=== PATIENT | female | born 1965 | race Two or more races ===

== ENCOUNTER → 2024-11-04 | Outpatient (CLI) | payer MEDICAID, SELFPAY ==
--- NOTE | 2024-11-04 10:00 | XR_ITS ---
Exam: MRI knee without contrast, left Date and time of exam: November 04, 2024 1021 hrs. Indications: Sudden onset knee pain joint locking stiffness this week Technique: Multiple axial, coronal, and sagittal sections on the knee have been obtained. T2-Weighted sagittal, fat-suppressed images, TR 3,500, TE 62, T2 weighted coronal fat-saturated images, TR 3,500, TE 62 Proton density sagittal sections, TR 1800, TE 31. T-1 weighted coronal images, TR 524, TE 13.0 Findings: Medial meniscus anterior horn intact. Medial meniscus, body is intact. Posterior horn medial meniscus intact. Lateral meniscus anterior horn is intact Lateral meniscus, body is intact Posterior horn lateral meniscus is intact Anterior cruciate ligament high-grade sprain Posterior cruciate ligament appears intact. Knee effusion is small. Quadriceps and patellar tendons appear intact. There is no evidence of tendinosis. Inflammatory change or fracture of Hoffa's fat pad is not seen. Medial patellar facet demonstrates severe thinning. Lateral patellar facet cartilage demonstrates severe thinning. Trochlear cartilage demonstrates severe thinning. 10 mm full-thickness cartilaginous defect at the median eminence Marrow signal adequate. Medial collateral ligament appears intact. No meniscocapsular separation is seen. Illiotibial band and fibular collateral ligament are intact. Biceps femoris tendons appear intact. Medial femoral condylar articular cartilage demonstrates moderate thinning. Lateral femoral condylar articular cartilage demonstratesmoderate thinning. Tibial plateau cartilage demonstrates moderate thinning. Impression: High-grade sprain anterior cruciate ligament Significant thickening cartilage patellar facets with 10 mm full-thickness cartilaginous defect at the median eminence of the patella
== END | disposition home or self-care (01) ==
PROVIDERS: PCP Registered Nurse Community Health; Referring Provider Orthopaedic Surgery; Visit Provider Orthopaedic Surgery
DX: S83.512A Sprain of anterior cruciate ligament of left knee, initial encounter (principal); X58.XXXA Exposure to other specified factors, initial encounter; M25.862 Other specified joint disorders, left knee
CPT/HCPCS: 73721

== ENCOUNTER 2025-02-05 14:00 | Outpatient (RCR) | payer MEDICAID, SELFPAY ==
--- NOTE | 2025-01-27 14:09 | PT.OIERPT ---
PT OP Initial Eval Patient Information Outpatient Physical Therapy Treatment Date: 01/27/25 Visit Reasons: Left knee pain Medical Diagnosis: M23.92 Treatment Dx #1: L knee pain Start of Care: 01/27/25 Date of Onset: 6 months ago Smoking Status Smoking Status: Never smoker Initial Assessment Subjective: Pt is 59 yr old kiswahili speaking female who reports L knee pain x6 months along with weakness. She feels the lower calf is numb. She can do HH chores and walk but feels like she is dragging the L LE. PMH: HTN, Parkinson's, Imaging: MRI of L knee Significant thickening cartilage patellar facets with 10 mm full-thickness cartilaginous defect at the median eminence of the patella Pt goal: less knee pain Objective: L knee AROM: Extension: -5 deg Flexion: 114 deg SLR: 45 deg Strength: Quads: 3+/5 HS: 3+/5 Katie's: negative Patella compression: negative Assessment: Pt presents with decreased L knee strength and pain with full extension. Pt requires skilled therapy to meet goals and she has fair rehab potential. Short Term and Electric Cell Tender Goals 1. Ind with HEP 2. Improved L knee extension ROM to full 3. Improved strength to 4/5 quads and HS 4. Ambulate with symmetrical pattern and no dragging the L LE x 200' Treatment Plan ? 1. Manual therapy ? 2. Therex ? 3. Modalities as indicated, moist heat, ice, estim Frequency and Duration: 2x a week for 8 Rx sessions plus the evaluation Certification Dates: 01/27/25 to 04/27/25 Procedure Charges OP PT Eval Mod Complex 30 minutes: Yes
--- NOTE | 2025-02-05 14:37 | PT.ODAYNRPT ---
PT Outpatient Daily Note OP Daily Note Outpatient Physical Therapy Treatment Date: 02/05/25 Visit Reasons: Left knee pain Subjective: Pt c/o L knee numbing/tingling. Objective: Please see flow sheet for ther ex list. Assessment: Pt performs SLR with knee extension lag likely due to poor quad recruitment. Plan: Continue with pOC. Length of Time (minutes) of Treatment: 30 Minutes Procedure Charges Therapeutic Exercise 30 minutes: Yes
== END 2025-02-06 23:59 | disposition home or self-care (01) ==
LOC: CPTX 14:00
PROVIDERS: PCP Orthopaedic Surgery; Referring Provider Orthopaedic Surgery; Visit Provider Orthopaedic Surgery
DX: M25.562 Pain in left knee (principal); R53.1 Weakness; M23.92 Unspecified internal derangement of left knee; I10 Essential (primary) hypertension
CPT/HCPCS: 97110; 97162

== ENCOUNTER 2025-02-12 10:00 | Day surgery (SDC) | payer MEDICAID, SELFPAY ==
--- NOTE | 2025-02-11 11:47 | EKG_ITS ---
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
[2025-02-11 11:55] VITALS: BMI 30.3
[2025-02-11 13:02] LABS: Basophils # (Auto) 0.1 Thou/mm3 (0.0-0.2); Basophils % (Auto) 1 % (0-2.5); Eosinophils # (Auto) 0.2 Thou/mm3 (0.0-0.5); Eosinophils % (Auto) 2 % (0-10); Hematocrit 39.8 % (36.0-46.0); Hemoglobin 13.4 g/dL (12.0-16.0); Immature Granulocytes % (Auto) 0 % (0-0); Immature Granulocytes Auto 0.01 Thou/mm3 (0.00-0.00); Lymphocytes # (Auto) 1.9 Thou/mm3 (1.0-4.8); Lymphocytes % (Auto) 23 % (10-50); Mean Corpuscular HGB Conc 33.7 g/dl (31.0-37.0); Mean Corpuscular Hemoglobin 31.1 pg (25.0-35.0); Mean Corpuscular Volume 92 fL (80-100); Monocytes # (Auto) 0.5 Thou/mm3 (0.0-0.8); Monocytes % (Auto) 5 % (0-12); Neutrophils # (Auto) 5.7 Thou/mm3 (1.8-7.7); Neutrophils % (Auto) 69 % (37-80); Nucleated Red Blood Cell % 0 /100 WBC (0); Platelet Count 263 Thou/mm3 (140-440); RDW Standard Deviation 41.3 fL (36.4-46.3); Red Blood Count 4.31 Miln/mm3 (4.00-5.20); White Blood Count 8.3 Thou/mm3 (3.6-11.0)
[2025-02-11 13:10] LABS: Prothrombin Time 10.6 Seconds (9.0-12.2)
[2025-02-11 13:12] LABS: Alanine Aminotransferase 17 U/L (10-49); Albumin, Serum 4.5 gm/dL (3.4-4.8); Albumin/Globulin Ratio 1.8 (1.2-2.2); Alkaline Phosphatase 74 U/L (46-116); Anion Gap 11 (7-16); Aspartate Amino Transferase 22 U/L (0-34); BUN/Creatinine Ratio 27 Ratio (12-20); Bilirubin,Total 0.9 mg/dL (0.3-1.2); Blood Urea Nitrogen 19 mg/dL (9-23); Calcium 9.4 mg/dL (8.3-10.6); Calcium (Corrected) 9.4 mg/dL (8.5-10.1); Carbon Dioxide 30.4 mMol/L (20.0-31.0); Chloride 105 mMol/L (98-107); Creatinine (Component) 0.7 mg/dL (0.6-1.3); Estimated Creatinine Clearance 67.7 mL/min (>60); Globulin 2.5 gm/dL (2.3-3.5); Glucose 98 mg/dL (74-106); Osmolality,Calculated 292 (275-295); Potassium 4.1 mMol/L (3.4-5.1); Sodium 146 mMol/L (136-145); eGFR > 60 See Note
[2025-02-12] VITALS (8 sets, daily range): BP systolic 129–160; BP diastolic 75–98; PULSE 62–81; RESP 16–20; TEMP 36.2–36.7; O2SAT 95–98; BMI 30.1
--- NOTE | 2025-02-12 07:20 | ESHP_ITS ---
RE: ESTUARDO MILLER : 1965 DATE OF ADMISSION: 02/11/2025 The patient came to my office for detailed preop history and physical examination. HISTORY OF PRESENT COMPLAINT: The patient presented to me with history of pain, swelling, clicking, and locking of the left knee joint. This is going on for a long period of time. The patient's quality of life and activities of daily living is affected. Sometimes, she is unable to sleep. Unable to walk more than 200 yards or so. MRI scan confirmed torn meniscus and the patient wants something to be done about it. PAST MEDICAL HISTORY: The patient has history of high blood pressure and diabetes mellitus. No history of asthma, seizure, chest pain, myocardial infarction or bleeding disorder. PAST SURGICAL HISTORY: None. DRUG HISTORY: The patient is taking 1. Lisinopril. 2. Metformin. 3. Levothyroxine. 4. Vitamin B2. ALLERGIES: NONE KNOWN. FAMILY HISTORY AND SOCIAL HISTORY: The patient denies smoking, drinking, is not working. PHYSICAL EXAMINATION: GENERAL: Normal-built lady. VITAL SIGNS: Pulse 68 per minute. Blood pressure 130/76. NECK: Soft, supple. No mass felt. Trachea is centrally placed. CARDIOVASCULAR SYSTEM: First and second heart sounds are normal. No murmur heard. RESPIRATORY SYSTEM: Bilateral vesicular breath sounds. CHEST: Clear. ABDOMEN: Soft. No mass felt. Bowel sounds are present. EXTREMITIES: Left knee examination, 1+ swelling and 2+ tenderness. Active range of motion 0 to 110 degrees of flexion. Crepitus is present. Katie's test is positive. Drawer test and Ben test were negative. Neurovascularly, it is intact. ASSESSMENT AND PLAN: The patient was symptomatic and MRI scan confirmed torn meniscus with DJD and synovitis with increased joint fluid. Therefore, left knee arthroscopy was discussed and advised. Risks with anesthesia were explained and that includes, but not limited to reaction to anesthetic agents, cardiac arrest, and rarely, it might be fatal. Risks with operations include infection and if that happens, the patient may need further surgical procedure. Other risks include delayed healing, wound dehiscence, etc.. No guarantee is given regarding outcome of procedure and/or relief of symptoms. Indeed, if somebody finds grade IV chondromalacia, there is a possibility that the patient may continue having pain and may be a candidate for further procedure including joint replacement. The patient is fully aware of that. Accordingly, surgery is booked for 02/12/2025. The patient is also cleared for surgical procedure. DT: 13:21:46 TT: 14:32:00 Ref: [id number] - TID: [id number]
--- NOTE | 2025-02-12 10:44 | SUR.PREOP ---
Patient expressed gratitude for prayer before their procedure.
--- NOTE | 2025-02-12 12:49 | SUR.PHASEI ---
pt arrived to PACU drowsy but arouses to voice, breathing unlabored, dressing to lower left extremity clean, dry, and intact, bilateral pedal pulses present, strong, and equal, report from Silva SHIPMAN and Dr Araiza
--- NOTE | 2025-02-12 12:51 | PD.SUROPNT ---
Date of Procedure 02/12/25 Pre Op Diagnosis 1. Torn medial meniscus left knee joint 2 torn lateral meniscus 3. DJD 4 synovitis Post Op Diagnosis Same Procedure 1. Partial medial meniscectomy 2 partial lateral meniscectomy 3 chondroplasty 4. Partial synovectomy including excision plica Findings Refer dictation Procedure Description The patient was given general endotracheal anesthesia. Once satisfactory anesthesia was achieved, tourniquet was placed on left upper thigh. Following that the part was thoroughly prepped and draped. After using Esmarch the tourniquet pressure was raised to 350 mmHg. A skin incision was made proximal to lateral tibial plateau and arthroscope was introduced in the usual fashion. Another a skin incision was made in suprapatellar pouch area and outlet was established. The findings were noted as below. In suprapatellar pouch area significant synovial tissue inflammation was present. Medial plica was present as well. The undersurface of patella showed grade 3/4 chondromalacia. The anterior femoral condyle showed grade 3 chondromalacia. Soft tissue impingement was present. The patellar tracking was checked and found to be good. The medial compartment showed grade 3 chondromalacia for medial tibial plateau and medial femoral condyle. The medial meniscus showed degeneration and tear of the anterior horn. There is a tear of the posterior horn of medial meniscus Another skin incision was made proximal to medial tibial plateau and a probe was introduced and findings were confirmed. The anterior cruciate ligament was intact. The anterior drawer test was performed and found to be good. With the help of probe integrity was tested and found to be good The lateral compartment showed grade III chondromalacia of lateral femoral condyle and tibial plateau. Lateral meniscus showed degeneration and tear of the body and anterior horn. Basket was introduced in the medial compartment and torn part of the posterior horn of medial meniscus was excised. A shaver was introduced and shaving of the anterior horn of medial meniscus was performed. Following that shaving of the posterior horn of medial meniscus was done. Soft tissue impingement was shaved off. Chondroplasty of the medial femoral condyle and medial tibial plateau was performed. The shaving of the body and anterior horn of lateral meniscus was done. The chondroplasty of the patella and and anterior femoral condyle was performed. The soft tissue impingement was shaved off. A partial synovectomy including excision of plica was performed. Medial shelf was excised beforehand Copious amount of irrigation was used to irrigate the knee joint. All the debris were removed. 3-0 Prolene was used to close the wound. About 20 mL of quarter percent Marcaine along with 10 mg of Duramorph was injected. Patient tolerated procedure well. Estimated blood loss was about 5 mL. Prognosis in this case is fair to good. Patient was taken to the recovery room in good condition. Anesthesia GETA Pathology / specimen None Estimated Blood Loss 1 Surgeon Tristan Browning MD Surgical Staff Operation Date: 02/12/25 12:15 Case Staff Anesthesiologist: Manjit Araiza
--- NOTE | 2025-02-12 13:04 | SUR.PHASEI ---
report to Primo SHIPMAN
--- NOTE | 2025-02-12 13:32 | SUR.PHASEII ---
pt able to tolerate oral fluids without difficulty swallowing or nausea/vomiting.
--- NOTE | 2025-02-12 14:20 | SUR.PHASEII ---
pt awake and alert, breathing unlabored on room air. v/s stable. pt dressing to left lower extremity cdi. pt able to ambulate to wheelchair with steady gait. d/c instructions given with ras Gandara in room using salvage inspector wood parts Annel Peraza, all questions answered. pt d/c via wheelchair with all belongings.
== END 2025-02-12 14:20 | disposition home or self-care (01) ==
PROVIDERS: Anesthesiology; Family Provider Orthopaedic Surgery; PCP Family Medicine; Referring Provider Orthopaedic Surgery; Visit Provider Orthopaedic Surgery
PROC: (CPT 29870; principal; 2025-02-12 12:00)
DX: S83.242A Other tear of medial meniscus, current injury, left knee, initial encounter (principal); M65.90 Unspecified synovitis and tenosynovitis, unspecified site; S83.282A Other tear of lateral meniscus, current injury, left knee, initial encounter; M17.12 Unilateral primary osteoarthritis, left knee
CPT/HCPCS: 29875; 29880; 36415; 80053; 85025; 85610; 85730; 93005; A4217; A4649; J0690; J1100; J2250; J2405; J2704; J2765; J3010; J3490

== ENCOUNTER 2025-04-21 12:45 | Day surgery (SDC) | payer MEDICAID, SELFPAY ==
[2025-04-20 12:29] VITALS: BMI 28.9
[2025-04-21] VITALS (10 sets, daily range): BP systolic 97–131; BP diastolic 62–98; PULSE 52–64; RESP 13–17; TEMP 36.6–36.7; O2SAT 95–100; BMI 27.7
[2025-04-21] MEDS: fentaNYL CIT INJ 50 mCg/ML AMP 2ML (ASD USE ONLY) IVP (14:52)
[2025-04-21] MEDS: MIDAZOLAM INJ 1 MG/ML VIAL 2 ML (ASD USE ONLY) 2 MG IVP (15:01)
[2025-04-21] MEDS: RINGERS LACTATED 1000 ML 1,000 ML 100 ML IV (15:03)
--- NOTE | 2025-04-21 15:42 | SUR.PHASEII ---
1542 Pt continues to do well. Via [place] speaker-pt denies pain, N/V or hypoglycemic symptoms. Abd remains soft. Cont to milagros juice.
--- NOTE | 2025-04-21 16:04 | SUR.PHASEII ---
1600 Pt assessment unchanged. No complaints. Repeat BS 78. Amb with steady gait. Able to dress self. Pt requesting family to interpret. DC instructions given, questions answered. Pt meets criteria-to home.
== END 2025-04-21 16:00 | disposition home or self-care (01) ==
PROVIDERS: PCP Physician Assistant; Referring Provider Surgery; Visit Provider Surgery
PROC: 0DBE8ZX Excision of Large Intestine, Via Natural or Artificial Opening Endoscopic, Diagnostic (ICD-10-PCS; CPT 45380; principal; 2025-04-21 13:45)
DX: Z12.11 Encounter for screening for malignant neoplasm of colon (principal); Z12.12 Encounter for screening for malignant neoplasm of rectum; K57.30 Diverticulosis of large intestine without perforation or abscess without bleeding; M19.90 Unspecified osteoarthritis, unspecified site; G20.A1 Parkinson's disease without dyskinesia, without mention of fluctuations
CPT/HCPCS: 45378; J2250; J3010; J7120

== ENCOUNTER → 2025-07-12 | Outpatient (CLI) | payer MEDICAID, SELFPAY ==
--- NOTE | 2025-07-12 13:43 | XR_ITS ---
EXAMINATION: PA lateral chest 2 views TECHNIQUE: Upright PA lateral chest 2 views Date and time: July 12, 2025, 1525 hours INDICATIONS: Patient fell 10 days ago with injury to the chest, chest pain FINDINGS: Mild prominence left ventricle No pneumothorax. Clavicles ribs appear intact Calcified nodule left upper lobe probably present on the prior study IMPRESSION: No pneumothorax or pulmonary contusion Recommend continued 3-month follow-up PA chest to document stability of pulmonary nodule left upper lobe
== END | disposition home or self-care (01) ==
DX: S29.9XXA Unspecified injury of thorax, initial encounter (principal); W19.XXXA Unspecified fall, initial encounter; R91.1 Solitary pulmonary nodule
CPT/HCPCS: 71046